=== PATIENT | female | born 1990 | race Caucasian/White ===

== ENCOUNTER 2020-01-27 09:59 | Emergency (ER) | payer OTHER ==
[~2020-01-27] VITALS: Ht 193 cm; Wt 89.8 kg
[2020-01-27] MEDS ORDERED: ONDA4 PO (10:31)
[2020-01-27] MEDS ORDERED: DICY20 PO (10:31)
== END 2020-01-27 10:42 | disposition home or self-care (01) ==
LOC: ER 09:59
DX: R10.9 Unspecified abdominal pain (principal); R11.2 Nausea with vomiting, unspecified; Z95.0 Presence of cardiac pacemaker; Z88.1 Allergy status to other antibiotic agents
CPT/HCPCS: 99282